=== PATIENT | female | born 1985 | race Caucasian/White ===

== ENCOUNTER → 2021-06-09 | Outpatient (CLI) | payer OTHER ==
[~2021-06-09] MED LIST: NORCO 5-325 TA1 EACH PO; ORTHO TRI-CYCL1 EACH PO; PERCOCET 10-321 EACH PO; TYLENOL 500 MG500 MG PO
== END ==
LOC: EXRD 14:57
DX: M25.572 Pain in left ankle and joints of left foot (principal); M79.672 Pain in left foot
CPT/HCPCS: 73610; 73630